=== PATIENT | male | born 1960 | race Hispanic/Latino ===

== ENCOUNTER 2018-11-01 07:47 | Day surgery (SDC) | payer OTHER ==
[2018-10-30 13:29] VITALS: BMI 25.0
--- NOTE | 2018-11-01 08:34 | HP ---
HISTORY OF PRESENT ILLNESS: This is a 58-year-old Latin-[place] male, comes for a colonoscopy for colon cancer screening. The patient has had colon polyps in the past and also has family history of colon cancer. He has a brother with colon cancer at the age of 47. The patient has had no GI symptoms. ALLERGIES: NONE. SOCIAL HISTORY: Smokes. Does not drink alcohol. MEDICAL ILLNESSES: 1. Arthritis. 2. Hyperlipidemia. 3. History of colon polyp. PHYSICAL EXAMINATION: VITAL SIGNS: Pulse is 70 and blood pressure 130/80. HEENT: Conjunctivae clear. CARDIOVASCULAR SYSTEM: First and second heart sounds heard. LUNGS: Clear to auscultation. ABDOMEN: Soft. No organomegaly. No tenderness. No masses. EXTREMITIES: Reveal no edema. ADMITTING DIAGNOSES: This is a 58-year-old Latin-[place] male, comes for a colonoscopy for colon cancer screening. He also has a family history of colon cancer and personal history of colon polyp. Job ID: [id number]
--- NOTE | 2018-11-01 11:12 | OP ---
DATE OF PROCEDURE: 11/01/2018 OPERATIVE PROCEDURE: Colonoscopy. PREOPERATIVE DIAGNOSES: Colon polyp, family history of colon cancer. POSTOPERATIVE DIAGNOSIS: Normal colonoscopy except for hemorrhoids. DESCRIPTION OF PROCEDURE: The patient was placed on his left lateral position and was given sedation by Anesthesia Department. A rectal exam was done before the scope was advanced into the rectum. No lesions felt on rectal exam. A Pentax videocolonoscope was introduced into the rectum and advanced all the way to the cecum. The prep was good. The mucosa appeared normal throughout the colon. The appendiceal orifice, ileocecal wall, and cecum, no pathology seen. Withdrawal of scope in the cecum, ascending colon, and hepatic flexure, no pathology seen. The transverse colon, splenic flexure, descending colon, and sigmoid colon, no pathology seen. Retroflexion of scope in the rectum, hemorrhoids. DISCHARGE PLANNING: This is a 58-year-old Latin-German male, came for colonoscopy because he has history of colon polyp and family history of colon cancer. The colonoscopy showed no pathology, just hemorrhoids. DISCHARGE RECOMMENDATION: 1. The patient advised to call me if he develops any abdominal pain, hematochezia, or fever. 2. In the absence of any other symptoms, he will come back to me in 2 weeks. Job ID: [id number]
[2018-11-01] MEDS ORDERED: PROPOFOL 200 MG/20 ML VIAL ONE (15:01)
== END 2018-11-01 11:28 | disposition home or self-care (01) ==
LOC: SDC 07:47
PROVIDERS: ATTEND Internal Medicine Gastroenterology
PROC: 0DJD8ZZ Inspection of Lower Intestinal Tract, Via Natural or Artificial Opening Endoscopic (ICD-10-PCS; principal; 2018-11-01)
DX: Z12.11 Encounter for screening for malignant neoplasm of colon (principal); K64.9 Unspecified hemorrhoids; M19.90 Unspecified osteoarthritis, unspecified site; E78.5 Hyperlipidemia, unspecified; I10 Essential (primary) hypertension; F17.210 Nicotine dependence, cigarettes, uncomplicated; Z86.010 Personal history of colon polyps; Z80.0 Family history of malignant neoplasm of digestive organs; Z79.899 Other long term (current) drug therapy